=== PATIENT | female | born 1965 | race Caucasian/White ===

== ENCOUNTER 2019-11-24 05:44 | Day surgery (SDC) | payer BC ==
[~2019-11-24] VITALS: Ht 172.7 cm; Wt 83.0 kg
[~2019-11-24 05:44] MED LIST: None at this Time
[2019-11-24] MEDS ORDERED: CHLORHEXIDINE 15 ML UDC MM STA (06:05)
[2019-11-24] MEDS ORDERED: LACTATED RINGERS 1,000 ML IV SCH (06:07)
[2019-11-24] MEDS ORDERED: CEFOTETAN PMX 2GM/50ML 50 ML IV STA (06:09)
[2019-11-24] MEDS ORDERED: BUPIVACAINE/PF 0.25% ONE (07:01)
[2019-11-24] MEDS ORDERED: INDOCYANINE GREEN 25 MG VIAL ONE (07:01)
[2019-11-24] MEDS ORDERED: HEPARIN 1,000 UNITS/ML, 10ML ONE (07:02)
[2019-11-24] MEDS ORDERED: EPINEPHRINE 1 MG/ML, 1ML ONE (07:02)
[2019-11-24] MEDS ORDERED: FENTANYL PF 250 MCG/5ML ONE ×2 (07:25→08:34)
[2019-11-24] MEDS ORDERED: MIDAZOLAM 1 MG/ML, 2ML ONE (07:25)
[2019-11-24] MEDS ORDERED: LIDOCAINE 1%, 20ML ONE (07:40)
[2019-11-24] MEDS ORDERED: EPHEDRINE 50 MG/ML, 1ML ONE (07:40)
[2019-11-24] MEDS ORDERED: PROMETHAZINE 25 MG/ML, 1ML IVPush PRN (08:00)
[2019-11-24] MEDS ORDERED: HYDROmorphone 1 MG/ML, 1ML INJ IVPush PRN (08:00)
[2019-11-24] MEDS ORDERED: PROMETHAZINE 25 MG SUPP PR PRN (08:00)
[2019-11-24] MEDS ORDERED: ACETAMINOPHEN 325 MG TABLET PO PRN (08:00)
[2019-11-24] MEDS ORDERED: ONDANSETRON 2MG/ML, 2ML IVPush PRN (08:00)
[2019-11-24] MEDS ORDERED: OXYcodone 5 MG/5 ML ORAL.SOL UDC PO PRN (08:00)
[2019-11-24] MEDS ORDERED: INDOCYANINE GREEN 25 MG VIAL INJ ONE (08:20)
[2019-11-24] MEDS ORDERED: SUCCINYLCHOLINE 20 MG/ML, 10ML ONE (09:26)
[2019-11-24] MEDS ORDERED: NEOSTIGMINE 1 MG/ML, 10ML ONE (09:26)
[2019-11-24] MEDS ORDERED: PROPOFOL 10 MG/ML, 20ML ONE (09:26)
[2019-11-24] MEDS ORDERED: DEXAMETHASONE 4 MG/ML, 1ML ONE (09:26)
[2019-11-24] MEDS ORDERED: CEFAZOLIN 1,000 MG ONE (09:26)
[2019-11-24] MEDS ORDERED: GLYCOPYRROLATE 0.2MG/1ML, 5ML ONE (09:26)
[2019-11-24] MEDS ORDERED: ONDANSETRON 2MG/ML, 2ML ONE (09:26)
[2019-11-24] MEDS ORDERED: ROCURONIUM 10 MG/ML,10ML ONE (09:26)
[2019-11-24] MEDS ORDERED: SUGAMMADEX 200 MG/2 ML IVPush ONE (12:10)
[2019-11-24] MEDS ORDERED: FENTANYL PF 100 MCG/2ML ONE ×2 (12:15→12:39)
[2019-11-24] MEDS ORDERED: OXYC-302 PO (12:31)
[2019-11-24] MEDS ORDERED: ONDA4TAB7 PO (12:31)
[2019-11-24] MEDS ORDERED: HYDROmorphone 1 MG/ML, 1ML INJ ONE (12:39)
[2019-11-24] MEDS ORDERED: OXYcodone 5 MG/5 ML ORAL.SOL UDC ONE (12:39)
[2019-11-24] MEDS: FENTANYL PF 100 MCG/2ML IV PRN ×2 (12:41→13:07)
[2019-11-24 16:41] LABS: BASOPHILS % (AUTO) 0 % (0-1); EOSINOPHILS % (AUTO) 0 % (1-7); LYMPHOCYTES % (AUTO) 5 % (22-44); MEAN CORPUSCULAR HGB CONC 31.5 g/dL (32.4-35.8); MEAN PLATELET VOLUME 6.8 fL (7.4-10.4); MONOCYTES % (AUTO) 5 % (2-9); NEUTROPHILS % (AUTO) 90 % (42-75); PLATELET COUNT 430 x10^3/uL (130-400); RED BLOOD COUNT 4.81 x10^6/uL (3.82-5.3)
[2019-11-24 17:16] LABS: MD SCAN
== END 2019-11-24 17:50 | disposition home or self-care (01) ==
LOC: OUT 05:44
PROVIDERS: ATTEND Obstetrics & Gynecology
DX: C54.1 Malignant neoplasm of endometrium (principal); D49.89 Neoplasm of unspecified behavior of other specified sites; D25.2 Subserosal leiomyoma of uterus; R59.0 Localized enlarged lymph nodes; R97.1 Elevated cancer antigen 125 [CA 125]; N83.8 Other noninflammatory disorders of ovary, fallopian tube and broad ligament; N73.6 Female pelvic peritoneal adhesions (postinfective); E66.09 Other obesity due to excess calories; Z68.31 Body mass index [BMI] 31.0-31.9, adult; Z79.899 Other long term (current) drug therapy; Z98.51 Tubal ligation status; Z98.890 Other specified postprocedural states; Z80.0 Family history of malignant neoplasm of digestive organs
CPT/HCPCS: 36415; 38572; 58552; 74018; 85025; 86850; 86900; 86923; 88112; 88305; 88307; 88309; 88331; 88333; J0171; J0330; J0690; J1100; J1170; J1644; J2250; J2405; J2704; J2710; J3010; J3490; J7120; S2900

== ENCOUNTER 2020-10-20 07:28 | Outpatient (CLI) | payer BC, MEDICAID ==
[~2020-10-20 07:28] MED LIST changes: +ONDA4TAB7 PO; +OXYC1TAB12 PO
== END 2020-10-20 23:59 | disposition home or self-care (01) ==
LOC: ROC 07:28
PROVIDERS: ATTEND Radiology Radiation Oncology
DX: C54.1 Malignant neoplasm of endometrium (principal)
CPT/HCPCS: 99214; G0463